=== PATIENT | female | born 1990 | race Hispanic/Latino ===

== ENCOUNTER 2017-04-05 07:27 | Emergency (ER) | payer MEDICAID, OTHER ==
[~2017-04-05] VITALS: Ht 160 cm; Wt 91.6 kg
--- NOTE | 2017-04-05 08:12 | ED Chest Pain ---
General Chief Complaint: Chest Pain Stated Complaint: CHEST PAIN Nursing Triage Note: c/o intermittant chest pain x 3-4 days. Woke up with chest pain 0640 this morning. Nursing Sepsis Screen: No Definite Risk Source: patient Exam Limitations: no limitations History of Present Illness Time seen by provider: 07:45 Initial Comments Here with 3-4 days of epigastric/chest discomfort that radiates to the right shoulder. Pain woke her up this morning. She is approximately 32 weeks . She does have gestational diabetes. No history of similar. Otherwise uncomplicated course. No vomiting or diarrhea. History of preeclampsia and previous pregnancies. This is why she is currently on aspirin. She did take an aspirin this morning. Timing/Duration: 3-4 days Severity/Quality: moderate, aching Location: central, epigastric Radiation: back Activities at Onset: none Modifying Factors: improves with rest ASA po COMPUTER NUMERICAL CONTROL GRINDER: Yes NTG SL COMPUTER NUMERICAL CONTROL GRINDER: No Associated Symptoms: abdominal pain, back pain, No diaphoresis, No dizziness, No nausea/vomiting, No shortness of breath, No weakness Allergies and Home Medications Allergies Coded Allergies: No Known Drug Allergies (Unverified , 04/05/17) Review of Systems Constitutional: see HPI, No chills, No fever EENTM: No Symptoms Reported Respiratory: No Symptoms Reported Cardiovascular: See HPI, Denies Edema, Denies Lightheadedness Gastrointestinal: Abdominal Pain, Denies Diarrhea, Denies Nausea, Denies Vomiting Genitourinary: No Symptoms Reported Musculoskeletal: see HPI Skin: no symptoms reported All Other Systems Reviewed Negative Unless Noted: Yes Past Ousidjz-Xfjrax-Zrqvnp Hx Patient Social History Alcohol Use: Denies Use Recreational Drug Use: No Smoking Status: Never a Smoker Recent Foreign Travel: No Contact w/Someone Who Travel: No Recent Infectious Disease Expo: No Surgeries HX Surgeries: Yes Surgeries: Orthopedic, Tonsillectomy Respiratory Hx Respiratory Disorders: No Cardiovascular Hx Cardiac Disorders: No Neurological Hx Neurological Disorders: No Reproductive System : Yes (32 wks) Hx Reproductive Disorders: Yes (history of preeclampsia) Genitourinary Hx Genitourinary Disorders: No Gastrointestinal Hx Gastrointestinal Disorders: No Musculoskeletal Hx Musculoskeletal Disorders: No Endocrine Hx Endocrine Disorders: No Psychosocial Hx Psychiatric Problems: No Reviewed Nursing Assessment Reviewed/Agree w Nursing PMH: Yes Physical Exam Vital Signs Vital Sign - Last 12Hours 04/05/17 07:48 Temp 98.1 Pulse 70 Resp 10 B/P (MAP) 114/74 Pulse Ox 98 O2 Delivery Room Air Capillary Refill : Less Than 3 Seconds General Appearance: WD/WN, Mild Distress (epigastric discomfort) HEENT: PERRL/EOMI, Pharynx Normal Neck: Non Tender, Supple Respiratory: Lungs Clear, Normal Breath Sounds Cardiovascular: Regular Rate, Rhythm, No Murmur Gastrointestinal: Non Tender, Soft Extremity: Normal Range of Motion, Non Tender, No Calf Tenderness, No Pedal Edema Neurologic/Psychiatric: Alert, Oriented x3 Skin: Normal Color, Warm/Dry Progress/Results/Core Measures Results/Orders Lab Results Laboratory Tests Test 04/05/17 08:05 04/05/17 08:35 Range/Units White Blood Count 10.1 4.3-11.0 10^3/uL Red Blood Count 4.11 L 4.35-5.85 10^6/uL Hemoglobin 11.8 11.5-16.0 G/DL Hematocrit 35 35-52 % Mean Corpuscular Volume 86 80-99 FL Mean Corpuscular Hemoglobin 29 25-34 PG Mean Corpuscular Hemoglobin Concent 33 32-36 G/DL Red Cell Distribution Width 13.3 10.0-14.5 % Platelet Count 305 130-400 10^3/uL Mean Platelet Volume 9.7 7.4-10.4 FL Neutrophils (%) (Auto) 64 42-75 % Lymphocytes (%) (Auto) 28 12-44 % Monocytes (%) (Auto) 7 0-12 % Eosinophils (%) (Auto) 1 0-10 % Basophils (%) (Auto) 0 0-10 % Neutrophils # (Auto) 6.5 1.8-7.8 X 10^3 Lymphocytes # (Auto) 2.8 1.0-4.0 X 10^3 Monocytes # (Auto) 0.7 0.0-1.0 X 10^3 Eosinophils # (Auto) 0.1 0.0-0.3 10^3/uL Basophils # (Auto) 0.0 0.0-0.1 10^3/uL Sodium Level 135 135-145 MMOL/L Potassium Level 3.9 3.6-5.0 MMOL/L Chloride Level 108 H 98-107 MMOL/L Carbon Dioxide Level 19 L 21-32 MMOL/L Anion Gap 8 5-14 MMOL/L Blood Urea Nitrogen 9 7-18 MG/DL Creatinine 0.56 L 0.60-1.30 MG/DL Estimat Glomerular Filtration Rate > 60 BUN/Creatinine Ratio 16 Glucose Level 98 70-105 MG/DL Calcium Level 8.9 8.5-10.1 MG/DL Total Bilirubin 0.2 0.1-1.0 MG/DL Aspartate Amino Transf (AST/SGOT) 10 5-34 U/L Alanine Aminotransferase (ALT/SGPT) 14 0-55 U/L Alkaline Phosphatase 87 40-136 U/L Total Protein 6.5 6.4-8.2 GM/DL Albumin 3.3 3.2-4.5 GM/DL Amylase Level 40 25-125 U/L Lipase 24 8-78 U/L Urine Color YELLOW Urine Clarity CLEAR Urine pH 6 5-9 Urine Specific [place] 1.015 L 1.016-1.022 Urine Protein NEGATIVE NEGATIVE Urine Glucose (UA) NEGATIVE NEGATIVE Urine Ketones NEGATIVE NEGATIVE Urine Nitrite NEGATIVE NEGATIVE Urine Bilirubin NEGATIVE NEGATIVE Urine Urobilinogen NORMAL NORMAL MG/DL Urine Leukocyte Esterase NEGATIVE NEGATIVE Urine RBC (Auto) NEGATIVE NEGATIVE Urine RBC NONE /HPF Urine WBC RARE /HPF Urine Squamous Epithelial Cells 2-5 /HPF Urine Crystals NONE /LPF Urine Bacteria TRACE /HPF Urine Casts NONE /LPF Urine Mucus NEGATIVE /LPF Urine Culture Indicated NO My Orders Orders - LAURYN KAT MD Amylase (04/05/17 07:55) Cbc With Automated Diff (04/05/17 07:55) Comprehensive Metabolic Panel (04/05/17 07:55) Lipase (04/05/17 07:55) Ua Culture If Indicated (04/05/17 07:55) Saline Lock/Iv-Start (04/05/17 07:55) Us Gallbladder [id number] (04/05/17 07:55) Ekg Tracing (04/05/17 07:56) Vital Signs/I&O Vital Sign - Last 12Hours 04/05/17 07:48 Temp 98.1 Pulse 70 Resp 10 B/P (MAP) 114/74 Pulse Ox 98 O2 Delivery Room Air Blood Pressure Mean: 87 Progress Note : Progress Note Seen and evaluated. IV, labs and EKG ordered. Gallbladder ultrasound ordered. Patient declined pain medicine. Monitor patient. 0925: Discussed case with Dr. MARIA. He agrees with the plan and agrees for discharge currently. He would like her to go to the third floor for monitoring afterwards as outpatient. This was discussed with the patient she agrees. Discharged home with return precautions. Patient verbalize understanding instructions and agreement with plan. ECG Initial ECG Impression Date: Apr 05, 2017 Initial ECG Impression Time: 07:41 Initial ECG Rate: 98 Initial ECG Rhythm: Normal Sinus Comment Sinus rhythm with normal axis. No evidence of ST elevation GA. No previous available for comparison. Interpreted by me. Diagnostic Imaging Diagonstic Imaging: Ultrasound Plain Films/CT/US/NM/MRI: abdomen Comments NAME: [facility] REC#: [id number] PT STATUS: REG ER : 1990 PHYSICIAN: LAURYN KAT MD ADMIT DATE: 04/05/17/ER Signed Date of Exam: 04/05/17 US GALLBLADDER [id number] INDICATION: Chest pain x4 days. TECHNIQUE: Multiple grayscale sonographic images were obtained of the right upper quadrant of the abdomen. CORRELATION STUDY: None FINDINGS: LIVER: The liver measures 19 cm. Increased echogenicity suggestive of fatty infiltration. No definitive focal lesion. GALLBLADDER: The gallbladder is present and demonstrates no evidence of shadowing gallstones or biliary sludge. No abnormal gallbladder wall thickening or pericholecystic fluid. COMMON BILE DUCT: Obscured and not visualized. No suggestion for significant bile duct dilatation. PANCREAS: Largely obscured by overlying bowel gas. RIGHT KIDNEY: Measures 12.2 cm. No hydronephrosis. OTHER: None. IMPRESSION: 1. Negative for gallstones. Biliary tree largely obscured and not visualized but demonstrates no findings to suggest significant bile duct dilatation. 2. Borderline hepatomegaly with likely some degree of hepatic steatosis. Dictated by: Dictated on workstation # [id number] Dict: 04/05/1735 Trans: 04/05/17836 Interpreted by: MARGARET ROQUE DO Electronically signed by: MARGARET ROQUE DO 04/05/1737 Departure Impression Impression: Primary Impression: Epigastric abdominal pain Additional Impressions: Chest pain Qualified Codes: R07.9 - Chest pain, unspecified Third trimester Disposition: 01 HOME, SELF-CARE Condition: Improved Departure-Patient Inst. Decision time for Depature: 09:29 Referrals: CHRISTIAN MARIA DO (PCP/Family) Primary Care Physician Patient Instructions: Chest Pain (DC) Add. Discharge Instructions: All discharge instructions reviewed with patient and/or family. Voiced understanding. You will go to the third floor for further testing. Follow-up with your DrChaparro within a few days for recheck. Return for worsening, fever, vomiting, weakness , breathing problems or other concerns as needed. LAURYN KAT MD Apr 05, 2017 08:12
[2017-04-05 08:13] LABS: BASOPHILS % (AUTO) 0 % (0-10); EOSINOPHILS # (AUTO) 0.1 10^3/uL (0.0-0.3); EOSINOPHILS % (AUTO) 1 % (0-10); LYMPHOCYTES # (AUTO) 2.8 X 10^3 (1.0-4.0); LYMPHOCYTES % (AUTO) 28 % (12-44); MEAN CORPUSCULAR HEMOGLOBIN 29 PG (25-34); MEAN CORPUSCULAR HGB CONC 33 G/DL (32-36); MEAN CORPUSCULAR VOLUME 86 FL (80-99); MEAN PLATELET VOLUME 9.7 FL (7.4-10.4); MONOCYTES # (AUTO) 0.7 X 10^3 (0.0-1.0); MONOCYTES % (AUTO) 7 % (0-12); NEUTROPHILS # (AUTO) 6.5 X 10^3 (1.8-7.8); NEUTROPHILS % (AUTO) 64 % (42-75); PLATELET COUNT 305 10^3/uL (130-400); RED BLOOD COUNT 4.11 10^6/uL (4.35-5.85); RED CELL DISTRIBUTION WIDTH 13.3 % (10.0-14.5); WHITE BLOOD COUNT 10.1 10^3/uL (4.3-11.0)
--- NOTE | 2017-04-05 08:40 | Diagnostic Imaging Report ---
INDICATION: Chest pain x4 days. TECHNIQUE: Multiple grayscale sonographic images were obtained of the right upper quadrant of the abdomen. CORRELATION STUDY: None FINDINGS: LIVER: The liver measures 19 cm. Increased echogenicity suggestive of fatty infiltration. No definitive focal lesion. GALLBLADDER: The gallbladder is present and demonstrates no evidence of shadowing gallstones or biliary sludge. No abnormal gallbladder wall thickening or pericholecystic fluid. COMMON BILE DUCT: Obscured and not visualized. No suggestion for significant bile duct dilatation. PANCREAS: Largely obscured by overlying bowel gas. RIGHT KIDNEY: Measures 12.2 cm. No hydronephrosis. OTHER: None. IMPRESSION: 1. Negative for gallstones. Biliary tree largely obscured and not visualized but demonstrates no findings to suggest significant bile duct dilatation. 2. Borderline hepatomegaly with likely some degree of hepatic steatosis. Dictated by: Dictated on workstation # [id number]
[2017-04-05 08:42] LABS: ALANINE AMINOTRANSFERASE 14 U/L (0-55); ALBUMIN 3.3 GM/DL (3.2-4.5); AMYLASE 40 U/L (25-125); ANION GAP 8 MMOL/L (5-14); ASPARTATE AMINO TRANSFERASE 10 U/L (5-34); BILIRUBIN,TOTAL 0.2 MG/DL (0.1-1.0); BLOOD UREA NITROGEN 9 MG/DL (7-18); BUN/CREATININE RATIO 16; CALCIUM 8.9 MG/DL (8.5-10.1); CARBON DIOXIDE 19 MMOL/L (21-32); CHLORIDE 108 MMOL/L (98-107); CREATININE SERUM 0.56 MG/DL (0.60-1.30); GFR ESTIMATED > 60; GLUCOSE 98 MG/DL (70-105); LIPASE 24 U/L (8-78); POTASSIUM 3.9 MMOL/L (3.6-5.0); SODIUM 135 MMOL/L (135-145); TOTAL PROTEIN 6.5 GM/DL (6.4-8.2)
[2017-04-05 08:54] LABS: BILIRUBIN,URINE NEGATIVE (NEGATIVE); KETONES,URINE NEGATIVE (NEGATIVE); LEUKOCYTE ESTERASE ,URINE NEGATIVE (NEGATIVE); NITRITE,URINE NEGATIVE (NEGATIVE); PH,URINE 6 (5-9); PROTEIN,URINE NEGATIVE (NEGATIVE); UROBILINOGEN,URINE NORMAL (NORMAL)
[2017-04-05 09:03] LABS: WBC,URINE RARE /HPF
[2017-04-05 09:42] VITALS: BP 112/68
== END 2017-04-05 09:42 | disposition home or self-care (01) ==
LOC: ER 07:32
DX: O26.893 Other specified pregnancy related conditions, third trimester (principal); R10.13 Epigastric pain; R07.89 Other chest pain; Z3A.32 32 weeks gestation of pregnancy; Z87.59 Personal history of other complications of pregnancy, childbirth and the puerperium; Z79.82 Long term (current) use of aspirin
CPT/HCPCS: 36415; 76705; 80053; 81000; 82150; 83690; 85025; 93005

== ENCOUNTER 2017-04-05 09:37 | Outpatient (CLI) | payer MEDICAID, OTHER ==
[2017-04-05 10:34] VITALS: BP 126/71
--- NOTE | 2017-04-06 12:01 | Physician Query-Final Dx ---
CHEO MAYEN 04/06/17 1201: Clinic Account Progress/Dx Physician Query: Please give diagnosis Date of Service Apr 05, 2017 at 09:37 CHRISTIAN MARIA DO 04/07/17 0849: Clinic Account Progress/Dx DIAGNOSIS: Diagnosis 32 week IUP Chest tightness SOB CHEO MAYEN Apr 06, 2017 12:01 CHRISTIAN MARIA DO Apr 07, 2017 08:49
== END 2017-04-05 10:37 | disposition home or self-care (01) ==
LOC: WSo 09:37 → LDRP 09:37 → WSo 10:37
PROVIDERS: ATTEND Obstetrics & Gynecology
DX: R06.02 Shortness of breath (principal); R07.89 Other chest pain; Z3A.32 32 weeks gestation of pregnancy
CPT/HCPCS: 59025

== ENCOUNTER 2017-04-20 15:24 | Outpatient (CLI) | payer MEDICAID ==
[~2017-04-20] VITALS: Ht 160 cm; Wt 91.6 kg
[2017-04-20 15:00] VITALS: BP 144/72
[2017-04-20 15:15] VITALS: BP 116/70
[2017-04-20] MEDS ORDERED: ACETAMINOPHEN 500 MG TAB (TYLENOL) PO ONE (15:45)
[2017-04-20 15:46] LABS: BASOPHILS % (AUTO) 0 % (0-10); EOSINOPHILS % (AUTO) 0 % (0-10); LYMPHOCYTES % (AUTO) 18 % (12-44); MEAN CORPUSCULAR HEMOGLOBIN 29 PG (25-34); MEAN CORPUSCULAR HGB CONC 34 G/DL (32-36); MEAN CORPUSCULAR VOLUME 86 FL (80-99); MEAN PLATELET VOLUME 9.8 FL (7.4-10.4); MONOCYTES # (AUTO) 0.7 X 10^3 (0.0-1.0); MONOCYTES % (AUTO) 6 % (0-12); NEUTROPHILS # (AUTO) 8.1 X 10^3 (1.8-7.8); NEUTROPHILS % (AUTO) 75 % (42-75); PLATELET COUNT 316 10^3/uL (130-400); RED BLOOD COUNT 3.93 10^6/uL (4.35-5.85); RED CELL DISTRIBUTION WIDTH 13.5 % (10.0-14.5); WHITE BLOOD COUNT 10.8 10^3/uL (4.3-11.0)
[2017-04-20 16:04] LABS: ALANINE AMINOTRANSFERASE 13 U/L (0-55); ALBUMIN 3.1 GM/DL (3.2-4.5); ANION GAP 11 MMOL/L (5-14); ASPARTATE AMINO TRANSFERASE 14 U/L (5-34); BILIRUBIN,TOTAL 0.2 MG/DL (0.1-1.0); BLOOD UREA NITROGEN 8 MG/DL (7-18); BUN/CREATININE RATIO 12; CALCIUM 8.9 MG/DL (8.5-10.1); CARBON DIOXIDE 18 MMOL/L (21-32); CHLORIDE 106 MMOL/L (98-107); CREATININE SERUM 0.67 MG/DL (0.60-1.30); GFR ESTIMATED > 60; GLUCOSE 187 MG/DL (70-105); POTASSIUM 3.8 MMOL/L (3.6-5.0); SODIUM 135 MMOL/L (135-145); TOTAL PROTEIN 6.5 GM/DL (6.4-8.2); URIC ACID 3.1 MG/DL (2.6-7.2)
[2017-04-20 16:23] LABS: PROTEIN/CREATININE RATIO 0.14
[2017-04-20] MEDS ORDERED: GLYB5TAB6 PO (16:47)
[2017-04-20] MEDS ORDERED: PREN1TAB86 PO (16:48)
--- NOTE | 2017-04-21 13:46 | Physician Query-Final Dx ---
CHEO MAYEN 04/21/17 1346: Clinic Account Progress/Dx Physician Query: Please give diagnosis Date of Service Apr 20, 2017 at 15:24 CHRISTIAN MARIA DO 04/21/17 1432: Clinic Account Progress/Dx DIAGNOSIS: Diagnosis 34 week IUP Headache Elevated BP at home Hx of PreE GDMA2 CHEO MAYEN Apr 21, 2017 13:46 CHRISTIAN MARIA DO Apr 21, 2017 14:32
== END 2017-04-20 17:25 | disposition home or self-care (01) ==
LOC: WSo 15:24 → LDRP 15:24 → WSo 17:25
PROVIDERS: ATTEND Obstetrics & Gynecology
DX: O24.419 Gestational diabetes mellitus in pregnancy, unspecified control (principal); R51 Headache; R03.0 Elevated blood-pressure reading, without diagnosis of hypertension; Z3A.34 34 weeks gestation of pregnancy
CPT/HCPCS: 36415; 80053; 82570; 84156; 84550; 85025; 99213

== ENCOUNTER 2017-05-17 19:10 | Inpatient (IN) | payer MEDICAID ==
[~2017-05-17] VITALS: Ht 160 cm; Wt 99.4 kg
[~2017-05-17 19:10] MED LIST: GLYB5TAB6 PO; PREN1TAB86 PO
[2017-05-17 19:30] VITALS: BP 144/91
[2017-05-17] MEDS ORDERED: NS IV 1000 ML 2,000 ML ONE (19:48)
[2017-05-17] MEDS ORDERED: AMPICILLIN INJECTION 2,000 MG in NS (IVPB) 50 ML IV SCH (20:04)
[2017-05-17 20:11] LABS: BASOPHILS % (AUTO) 0 % (0-10); EOSINOPHILS % (AUTO) 0 % (0-10); LYMPHOCYTES # (AUTO) 2.8 X 10^3 (1.0-4.0); LYMPHOCYTES % (AUTO) 26 % (12-44); MEAN CORPUSCULAR HEMOGLOBIN 29 PG (25-34); MEAN CORPUSCULAR HGB CONC 34 G/DL (32-36); MEAN CORPUSCULAR VOLUME 86 FL (80-99); MEAN PLATELET VOLUME 10.4 FL (7.4-10.4); MONOCYTES # (AUTO) 0.8 X 10^3 (0.0-1.0); MONOCYTES % (AUTO) 8 % (0-12); NEUTROPHILS # (AUTO) 6.9 X 10^3 (1.8-7.8); NEUTROPHILS % (AUTO) 65 % (42-75); PLATELET COUNT 333 10^3/uL (130-400); RED BLOOD COUNT 4.11 10^6/uL (4.35-5.85); RED CELL DISTRIBUTION WIDTH 13.9 % (10.0-14.5); WHITE BLOOD COUNT 10.6 10^3/uL (4.3-11.0)
[2017-05-17] MEDS: NS IV 1000 ML 1,000 ML IV SCH (20:12)
[2017-05-17] MEDS ORDERED: MINERAL OIL CONCENTRATE 99.9% 15 ML UDC TOP PRN (20:15)
[2017-05-17] MEDS ORDERED: CATHETER FLUSH 10 ML SYR IV PRN (20:15)
[2017-05-17] MEDS ORDERED: HYDROmorphone (DILAUDID) 2 MG/ML VIAL IVP PRN (20:15)
[2017-05-17] MEDS ORDERED: NS IV 1000 ML 1,000 ML IV ONE (20:15)
[2017-05-17] MEDS ORDERED: MISOPROSTOL 100 MCG (CYTOTEC) TAB PO NR (20:15)
[2017-05-17 20:25] LABS: ALANINE AMINOTRANSFERASE 16 U/L (0-55); ALBUMIN 3.2 GM/DL (3.2-4.5); ANION GAP 13 MMOL/L (5-14); ASPARTATE AMINO TRANSFERASE 14 U/L (5-34); BILIRUBIN,TOTAL 0.2 MG/DL (0.1-1.0); BLOOD UREA NITROGEN 10 MG/DL (7-18); BUN/CREATININE RATIO 14; CALCIUM 9.1 MG/DL (8.5-10.1); CARBON DIOXIDE 18 MMOL/L (21-32); CHLORIDE 105 MMOL/L (98-107); CREATININE SERUM 0.74 MG/DL (0.60-1.30); GFR ESTIMATED > 60; GLUCOSE 166 MG/DL (70-105); POTASSIUM 3.7 MMOL/L (3.6-5.0); SODIUM 136 MMOL/L (135-145); TOTAL PROTEIN 6.6 GM/DL (6.4-8.2)
[2017-05-17 20:30] VITALS: BP 136/86
[2017-05-17] MEDS ORDERED: ALBU18HF2 IH (20:36)
[2017-05-17 21:40] VITALS: BP 131/81
[2017-05-17] MEDS ORDERED: CATHETER FLUSH 10 ML SYR IV SCH ×2 (22:00)
[2017-05-17 22:30] VITALS: BP 131/80
[2017-05-17 23:30] VITALS: BP 132/77
[2017-05-18] VITALS (31 sets, daily range): BP systolic 110–161; BP diastolic 0–105
[2017-05-18] MEDS: AMPICILLIN INJECTION 1,000 MG in NS (IVPB) 50 ML IV SCH ×2 (00:56→05:21)
[2017-05-18] MEDS ORDERED: MISOPROSTOL 100 MCG (CYTOTEC) TAB PO SCH (01:00)
[2017-05-18] MEDS: NS IV 1000 ML 1,000 ML IV SCH ×2 (02:42→14:15)
[2017-05-18] MEDS ORDERED: SUFENTA 0.6MCG/ML BUPIVA 0.125 100 ML ONE (05:06)
[2017-05-18] MEDS ORDERED: LACTATED RINGERS 0 ML IV ONE (05:06)
[2017-05-18] MEDS ORDERED: fentaNYL INJECTION 100 MCG/2 ML AMP ONE ×3 (05:59→08:05)
[2017-05-18] MEDS ORDERED: BUPIVACAINE 0.25% 30 ML (SENSORCAINE) VIAL ONE ×2 (05:59→06:00)
[2017-05-18] MEDS ORDERED: LACTATED RINGERS 1,000 ML IV SCH (06:21)
[2017-05-18] MEDS ORDERED: METOCLOPRAMIDE INJ 10 MG/2 ML (REGLAN) IV PRN (06:30)
[2017-05-18] MEDS ORDERED: NALOXONE 0.4 MG/ML 1 ML (NARCAN) VIAL IV PRN ×2 (06:30)
[2017-05-18] MEDS ORDERED: diphenhydrAMINE 50 MG/ML INJ (BENADRYL) IV PRN (06:30)
[2017-05-18] MEDS ORDERED: ONDANSETRON 4 MG/2 ML (SDV) Z0FRAN IV PRN (06:30)
[2017-05-18] MEDS ORDERED: EPIDURAL (SUFENTA 0.6MCG/ML BUPIVA 0.125%) 100 ML BAG EPI SCH (06:30)
[2017-05-18] MEDS ORDERED: FAMOTIDINE 20MG/2ML IV (PEPCID) ONE (07:24)
[2017-05-18] MEDS ORDERED: CITRIC ACID/SOB CIT (BICITRA) 30 ML UDC ONE (07:24)
[2017-05-18] MEDS ORDERED: OXYTOCIN/NORMAL SALINE 1,000 ML IV ONE (07:39)
[2017-05-18] MEDS ORDERED: SEVOFLURANE (ULTANE) 15 ML INHAL SOLN ONE ×3 (07:39→08:18)
[2017-05-18] MEDS ORDERED: SUCCINYLCHOLINE INJ 100 MG/5 ML SYR ONE (07:40)
[2017-05-18] MEDS ORDERED: proPOfol 200 MG/20 ML (DIPRIVAN) VIAL IV ONE ×2 (07:40→07:57)
[2017-05-18] MEDS ORDERED: MIDAZOLAM 2 MG/2 ML (VERSED) VIAL ONE (07:42)
[2017-05-18] MEDS ORDERED: ceFAZolin 2 GM/50 ML NS 50 ML ONE (07:47)
[2017-05-18] MEDS ORDERED: ONDANSETRON 4 MG/2 ML (SDV) Z0FRAN ONE (07:54)
[2017-05-18] MEDS ORDERED: MEPERIDINE (DEMEROL) INJ 50 MG/ML ONE (07:58)
[2017-05-18] MEDS ORDERED: KETOROLAC 30 MG/ML VIAL ONE (07:58)
[2017-05-18] MEDS ORDERED: morphine INJ 10 MG/ML 1ML (SYR OR VIAL) ONE (08:05)
[2017-05-18] MEDS ORDERED: morphine INJ 10 MG/ML 1ML (SYR OR VIAL) IVP PRN (08:30)
[2017-05-18] MEDS ORDERED: fentaNYL INJECTION 100 MCG/2 ML AMP IVP PRN (08:30)
[2017-05-18] MEDS ORDERED: KETOROLAC 30 MG/ML VIAL IVP NR (08:30)
[2017-05-18] MEDS ORDERED: ONDANSETRON 4 MG/2 ML (SDV) Z0FRAN IVP PRN ×2 (08:30→09:15)
[2017-05-18] MEDS ORDERED: TETANUS,DIPTH,PERTUSS P/F (BOOSTRIX) 0.5 ML VIAL IM SCH (09:15)
[2017-05-18] MEDS ORDERED: MEASLES,MUMPS,RUBELLA 1 EA INJ SC SCH (09:15)
[2017-05-18] MEDS ORDERED: HYDROmorphone (DILAUDID) 2 MG/ML VIAL IVP PRN (09:15)
--- NOTE | 2017-05-18 10:25 | History & Physical-OB ---
OB - Chief Complaint & HPI Date/Time Date of Admission: Date of Admission: May 17, 2017 at 7:10 pm Time Seen by Provider: 07:00 Chief Complaint/History Hx : 3 Hx Para: 1 Expected Date of Delivery: May 27, 2017 Gestational Age in Weeks: 38 Indication for induction: other (GDMA2) Admission Nurse Assessment Rev: Yes History of Labs O pos Antibody neg RI RPR NR HIV NR HBsAg NR GC neg GBS pos Allergies and Home Medications Allergies Coded Allergies: No Known Drug Allergies (Unverified , 04/05/17) Home Medications Albuterol Sulfate 18 Gm Hfa.aer.ad, 18 GM IH PRN, (Reported) Glyburide 5 Mg Tablet, 5 MG PO DAILY, (Reported) Vit W-Ca,Fe,FA(<1 mg) 1 Each Tablet, 1 EACH PO DAILY, (Reported) OB - History Hx of Present Care: Yes Ultrasounds: Normal mid trimester US Obstetrical Complications: Gestational Diabetes Medical Complications: Respiratory (asthma) Delivery History Adverse Rxn to Tranfusion: No Patient Past Medical History asthma Social History/Family History Recent Infectious Disease Expo: No Alcohol Use: Denies Use Recreational Drug Use: No Immunizations Hepatitis A: Yes Hepatitis B: Yes OB - Admission Exam Physical Exam Date Seen by Provider: May 18, 2017 Time Seen by Provider: 07:00 Vitals: Vital Signs 05/17/17 05/18/17 05/18/17 05/18/17 19:30 05:40 07:05 09:00 Temp 97.4 Pulse 87 Resp 18 B/P (MAP) 131/69 O2 Delivery Room Air O2 Flow Rate 10.00 HEENT: NCAT Heart: Rhythm Normal Lungs: Clear Abdomen: Gravid Extremities: Normal Reflexes: Normal Cervical Dilatation: Fingertip Effacement: 75% Station: -2 Membranes: Intact Heart Rate: 130's Accelerations: Accelerations Present Decelerations: No Decelerations Short Term Variability: Present Cost Clerk Variability: Average (6-25) Contractions on Admission: >10 Minutes Apart Intensity: Mild Zhong Scoring Tool (Modified) Dilation (cm): 1-2cm (1) Effacement (%): 51-79% (2) Descent/Station: -2 (1) Cervix Consistency: Soft (2) Cervix Position: Anterior (2) Add 1 point for: Each previous vaginal delivery (1) Zhong Score: 9 Labs Laboratory Tests Test 05/17/17 19:30 Range/Units White Blood Count 10.6 4.3-11.0 10^3/uL Red Blood Count 4.11 L 4.35-5.85 10^6/uL Hemoglobin 11.9 11.5-16.0 G/DL Hematocrit 35 35-52 % Mean Corpuscular Volume 86 80-99 FL Mean Corpuscular Hemoglobin 29 25-34 PG Mean Corpuscular Hemoglobin Concent 34 32-36 G/DL Red Cell Distribution Width 13.9 10.0-14.5 % Platelet Count 333 130-400 10^3/uL Mean Platelet Volume 10.4 7.4-10.4 FL Neutrophils (%) (Auto) 65 42-75 % Lymphocytes (%) (Auto) 26 12-44 % Monocytes (%) (Auto) 8 0-12 % Eosinophils (%) (Auto) 0 0-10 % Basophils (%) (Auto) 0 0-10 % Neutrophils # (Auto) 6.9 1.8-7.8 X 10^3 Lymphocytes # (Auto) 2.8 1.0-4.0 X 10^3 Monocytes # (Auto) 0.8 0.0-1.0 X 10^3 Eosinophils # (Auto) 0.0 0.0-0.3 10^3/uL Basophils # (Auto) 0.0 0.0-0.1 10^3/uL Sodium Level 136 135-145 MMOL/L Potassium Level 3.7 3.6-5.0 MMOL/L Chloride Level 105 98-107 MMOL/L Carbon Dioxide Level 18 L 21-32 MMOL/L Anion Gap 13 5-14 MMOL/L Blood Urea Nitrogen 10 7-18 MG/DL Creatinine 0.74 0.60-1.30 MG/DL Estimat Glomerular Filtration Rate > 60 BUN/Creatinine Ratio 14 Glucose Level 166 H 70-105 MG/DL Calcium Level 9.1 8.5-10.1 MG/DL Total Bilirubin 0.2 0.1-1.0 MG/DL Aspartate Amino Transf (AST/SGOT) 14 5-34 U/L Alanine Aminotransferase (ALT/SGPT) 16 0-55 U/L Alkaline Phosphatase 135 40-136 U/L Total Protein 6.6 6.4-8.2 GM/DL Albumin 3.2 3.2-4.5 GM/DL OB - Assessment/Plan/Diagnosis Assessment Assessment: induction of labor Plan Induction Method: per Misoprostol Protocol Discharge Diagnosis Diagnosis: 26 yo @ 38 weeks GDMA2 GBS pos CHRISTIAN MARIA DO May 18, 2017 10:25 am
--- NOTE | 2017-05-18 10:26 | Progress Note-Post Operative ---
Post-Operative Progess Note Surgeon (s)/Coremaker Helper (s) Surgeon CHRISTIAN MARIA DO Coremaker Helper: Andria Rosales Pre-Operative Diagnosis Funic cord presentation, with SROM and Cord prolapse Post-Operative Diagnosis same Procedure & Operative Findings Date of Procedure 05/18/17 Procedure Performed/Findings PLTCS see dictation Anesthesia Type GETA Estimated Blood Loss Estimated blood loss (mL): 400 Specimens/Packing Specimens Removed placenta CHRISTIAN MARIA DO May 18, 2017 10:26 am
--- NOTE | 2017-05-18 11:16 | OPERATIVE REPORT ---
DATE OF SERVICE: 05/18/2017 PREOPERATIVE DIAGNOSES: 1. A 26-year-old at 38 weeks' gestation. 2. Funic presentation with cord prolapse. POSTOPERATIVE DIAGNOSES: 1. A 26-year-old at 38 weeks' gestation. 2. Funic presentation with cord prolapse. PROCEDURE: Emergency primary low transverse section. SURGEON: Dr. Sonny Coon. PORTAL ADMINISTRATOR: MORENA Dumont. ANESTHESIA: General endotracheal. ESTIMATED BLOOD LOSS: 400 mL. URINE OUTPUT: 50 mL, clear at the end of the procedure. FLUIDS: 700 mL of lactated Ringer's solution. FINDINGS: A live male infant weighing 7 pounds, 11 ounces, Apgars of 6 and 9, grossly normal-appearing uterus, bilateral fallopian tubes and ovaries. SPECIMENS SENT: Placenta. INDICATIONS FOR PROCEDURE: This 26-year-old female was an admission last evening for induction of labor due to GDMA 2. She was on anti-hyperglycemics. The patient was given Misoprostol as their induction method 100 mcg last evening which induced contractions and set the patient into labor. She progressed to approximately 6-7 cm dilatation. When I arrived this morning to evaluate the patient and possibly artificially rupture her membranes there were deep variable decelerations noted with each contraction. The patient had just received an epidural so there was suspicion that this may be the underlying cause; however, I did go ahead and check the patient at the time of my evaluation and on my vaginal examination I found the cervix to be approximately 6 cm dilated, 80% effaced and -1 station. However, I did palpate a pulsating mass going down the midline of the vertex. I immediately had suspicion for funic presentation and held the head off of the cervix and called for an emergency section. I rode with the patient back to the operating room with my hand in the vagina holding the head off of the cervix. The patient was quickly briefed in that time frame about what was going on and the risks involved, as well as possibility of eminent if we do not act accordingly. Consent was obtained. Once in the operating room spontaneous rupture of membranes occurred and nurse was asked to take my place and she could palpate the umbilical cord in the vagina and continued to lift the infant's head off of the cervix. The patient was quickly prepped and draped in the normal sterile fashion after general anesthesia was initiated. I was able to scrub in and begin the procedure. OPERATIVE REPORT IN DETAIL: Once I was scrubbed in and able to proceed I made a Pfannenstiel skin incision with the knife and carried it down the underlying fascia using the knife. The fascial incision extended laterally using blunt traction. The rectus muscles were dissected down the midline using blunt traction. The peritoneum was entered bluntly and extended using blunt traction. The lower uterine segment was identified and found to be thinned out. I made a low transverse incision through the lower uterine segment and then extended this with blunt traction laterally. The was in vertex presentation. I elevate the 's head up through the incision, anterior posterior shoulders are delivered and the infant was brought into the operative field where it was bulb suctioned. The cord was dually clamped and cut and the infant was handed off to the waiting nurses and pediatric team in attendance. Cord blood was then collected. A 3-vessel cord with intact placenta was delivered spontaneously thereafter. Intravenous Pitocin was initiated to facilitate uterine contraction. An Jac ring retractor was then placed within the peritoneal incision which offers excellent lateral sidewall retraction while I proceeded with my repair. I then exteriorized the uterus and cleared it of all endometrial clots and debris. I then proceeded with closing the uterus using 0 Vicryl suture in a running locked fashion and a second layer of imbricating 0 Monocryl was placed. Excellent hemostasis was noted after doing this. I then copiously irrigated the pelvis using normal saline. There was no active bleeding noted from my dissection planes. I placed the uterus back within the pelvis and placed antiadhesive over the low transverse incision. I then proceeded with closing the peritoneum using 3-0 Vicryl suture in a running fashion. The rectus muscles were reapproximated using 3-0 Vicryl suture in an interrupted fashion. The fascia was reapproximated using 0 Vicryl suture in a running fashion. The subcutaneous tissues were reapproximated using 3-0 plain and an interrupted subcutaneous stitch and the skin was reapproximated using 4-0 Monocryl and running subcuticular. Dermabond was applied to the incision. Sterile dressing was adhesed with white tape. The patient tolerated the procedure well and was taken to the recovery area in stable condition. There were 2 grams of Ancef given intraoperatively for infection prophylaxis. Lap and sponge count was correct at the end of the procedure. Instrument count was correct as well. Job ID: [id number] DocumentID: [id number] Dictated Date: 05/18/2017 10:33:31 Mold Designer Date: 05/18/2017 11:15:57 Dictated By: DO JAQUAN ASHLEY
[2017-05-18] MEDS: HYDROcodone/APAP 5 MG/325 MG (LORTAB) TAB PO PRN ×3 (11:26→21:20)
[2017-05-18] MEDS ORDERED: CATHETER FLUSH 10 ML SYR IV SCH (14:00)
[2017-05-18] MEDS: KETOROLAC 30 MG/ML VIAL IVP SCH ×2 (14:16→20:08)
[2017-05-18] MEDS: DOCUSATE SODIUM 100 MG (COLACE) CAP PO SCH (20:08)
[2017-05-19] MEDS: HYDROcodone/APAP 5 MG/325 MG (LORTAB) TAB PO PRN ×4 (02:16→20:16)
[2017-05-19] MEDS: KETOROLAC 30 MG/ML VIAL IVP SCH ×2 (02:16→09:13)
[2017-05-19 04:00] VITALS: BP 97/65
[2017-05-19 04:15] VITALS: BP 97/65
[2017-05-19 05:55] LABS: BASOPHILS % (AUTO) 0 % (0-10); EOSINOPHILS # (AUTO) 0.1 10^3/uL (0.0-0.3); EOSINOPHILS % (AUTO) 1 % (0-10); LYMPHOCYTES # (AUTO) 2.5 X 10^3 (1.0-4.0); LYMPHOCYTES % (AUTO) 26 % (12-44); MEAN CORPUSCULAR HEMOGLOBIN 29 PG (25-34); MEAN CORPUSCULAR HGB CONC 33 G/DL (32-36); MEAN CORPUSCULAR VOLUME 87 FL (80-99); MEAN PLATELET VOLUME 9.4 FL (7.4-10.4); MONOCYTES # (AUTO) 0.7 X 10^3 (0.0-1.0); MONOCYTES % (AUTO) 7 % (0-12); NEUTROPHILS # (AUTO) 6.3 X 10^3 (1.8-7.8); NEUTROPHILS % (AUTO) 66 % (42-75); PLATELET COUNT 272 10^3/uL (130-400); RED BLOOD COUNT 3.39 10^6/uL (4.35-5.85); RED CELL DISTRIBUTION WIDTH 13.9 % (10.0-14.5); WHITE BLOOD COUNT 9.6 10^3/uL (4.3-11.0)
[2017-05-19 08:06] VITALS: BP 117/84
--- NOTE | 2017-05-19 08:49 | Discharge Inst-Women's Service ---
Discharge Inst-Women's Serv Depart Medication/Instructions New, Converted or Re-Newed RX: RX on Chart Consults/Follow Up Additional Follow Up: Yes Orders/Referrals Dr. Maria in 7-10 days and in 6 weeks Activity Activity: Activity as Tolerated Driving Instructions: No Driving for 1 Week NO SMOKING: NO SMOKING Nothing Inside Vagina: No Douching, No [place], No Tampons Diet Discharge Diet: No Restrictions Symptoms to Report to : Bleeding Excessive, Pain Increased, Fever Over 101 Degrees F, Vaginal Bleeding Increase, Questions/Concerns For Any Problems or Questions: Contact Your Physician Skin/Wound Care Infection Signs and Symptoms: Increased Redness, Foul Odor of Wound, Increased Drainage, Skin Itchy or Has a Rash, Increased Swelling, Temperature Above 101 F Operative Area Clean and Dry: Keep Incision Clean/Dry Stitches/Tere/Dermabond: Dermabond, Care of Stitches Bathing Instructions: Shower (x 2 weeks) CHRISTIAN MARIA DO May 19, 2017 8:49 am
[2017-05-19] MEDS ORDERED: HYDR-3812 PO (08:51)
[2017-05-19] MEDS ORDERED: IBUP-1773 PO (08:51)
[2017-05-19] MEDS ORDERED: DOCU100C37 PO (08:51)
[2017-05-19] MEDS ORDERED: FERR-74 PO (08:52)
[2017-05-19] MEDS ORDERED: KETOROLAC 30 MG/ML VIAL ONE (09:04)
--- NOTE | 2017-05-19 09:09 | Progress Note-Standard ---
Standard Progress Note Progress Notes/Assess & Plan Date Seen by Provider: May 19, 2017 Time Seen by Provider: 08:20 Progress/Assessment & Plan Patient doing well postop day one from primary low transverse section. She reports good pain control, denies heavy lochia. She is ambulating and voiding freely this morning. And tolerating a regular diet Vital Sign - Last 24 Hours 05/18/17 05/18/17 05/18/17 05/18/17 10:00 14:15 15:32 20:00 Temp 97.4 98.4 99.8 Pulse 102 106 111 Resp 20 20 18 B/P (MAP) 140/88 110/66 128/81 Pulse Ox 100 97 97 O2 Delivery Room Air Room Air Room Air Room Air 05/18/17 05/18/17 05/19/17 05/19/17 20:20 23:26 04:00 04:15 Temp 98.6 97.8 97.8 Pulse 106 100 96 96 Resp 20 18 18 18 B/P (MAP) 110/66 118/74 97/65 97/65 Pulse Ox 97 98 98 98 O2 Delivery Room Air Room Air Room Air Room Air O2 Flow Rate 10.00 05/19/17 08:06 Temp 98.5 Pulse 94 Resp 16 B/P (MAP) 117/84 Pulse Ox 97 O2 Delivery Room Air Incision: Clean, dry, intact Laboratory Tests Test 05/19/17 05:50 Range/Units White Blood Count 9.6 4.3-11.0 10^3/uL Red Blood Count 3.39 L 4.35-5.85 10^6/uL Hemoglobin 9.7 L 11.5-16.0 G/DL Hematocrit 30 L 35-52 % Mean Corpuscular Volume 87 80-99 FL Mean Corpuscular Hemoglobin 29 25-34 PG Mean Corpuscular Hemoglobin Concent 33 32-36 G/DL Red Cell Distribution Width 13.9 10.0-14.5 % Platelet Count 272 130-400 10^3/uL Mean Platelet Volume 9.4 7.4-10.4 FL Neutrophils (%) (Auto) 66 42-75 % Lymphocytes (%) (Auto) 26 12-44 % Monocytes (%) (Auto) 7 0-12 % Eosinophils (%) (Auto) 1 0-10 % Basophils (%) (Auto) 0 0-10 % Neutrophils # (Auto) 6.3 1.8-7.8 X 10^3 Lymphocytes # (Auto) 2.5 1.0-4.0 X 10^3 Monocytes # (Auto) 0.7 0.0-1.0 X 10^3 Eosinophils # (Auto) 0.1 0.0-0.3 10^3/uL Basophils # (Auto) 0.0 0.0-0.1 10^3/uL Diagnosis: Postop day 1 primary low transverse section Cord prolapse with funic presentation Acute blood loss anemia GDM A2 Plan: Continue routine postoperative care Encourage ambulation Replace iron Anticipate discharge tomorrow CHRISTIAN MARIA DO May 19, 2017 9:09 am
[2017-05-19] MEDS: DOCUSATE SODIUM 100 MG (COLACE) CAP PO SCH ×2 (09:13→20:16)
--- NOTE | 2017-05-19 10:23 | Anesthesia-Regional Post-Op ---
Regional Patient Condition Mental Status: Alert, Oriented x3 Circulation: Same as Pre-Op Headache: Absent Sensation: Full Recovery Motor Block: Absent Post Op Complications Complications None Follow Up Care/Instructions Patient Instructions None needed. Anesthesia/Patient Condition Patient is doing well, no complaints, stable vital signs, no apparent adverse anesthesia problems. No complications reported per nursing. EDI ROMAN CRNA May 19, 2017 10:23
--- NOTE | 2017-05-19 10:24 | Anesthesia-General Post-Op ---
General Significant Intra-Op Events Notes TRIXIE placed prior to STAT c/s. GETA for procedure. Post Op Complications Complications None Follow Up Care/Instructions Patient Instructions None needed. Anesthesia/Patient Condition Patient Condition Patient is doing well, no complaints, stable vital signs, no apparent adverse anesthesia problems. No complications reported per nursing. EDI ROMAN CRNA May 19, 2017 10:24
[2017-05-19 11:54] VITALS: BP 129/87
[2017-05-19] MEDS: IBUPROFEN 600 MG (MOTRIN) TAB PO SCH ×2 (14:38→20:16)
[2017-05-19 16:00] VITALS: BP 132/79
[2017-05-19 20:15] VITALS: BP 137/92
[2017-05-20] MEDS: HYDROcodone/APAP 5 MG/325 MG (LORTAB) TAB PO PRN ×3 (01:17→12:52)
[2017-05-20 03:20] VITALS: BP 134/90
[2017-05-20] MEDS: IBUPROFEN 600 MG (MOTRIN) TAB PO SCH ×2 (03:20→12:50)
[2017-05-20] MEDS: DOCUSATE SODIUM 100 MG (COLACE) CAP PO SCH (08:43)
--- NOTE | 2017-05-20 10:46 | Postpartum Progress Note ---
Post Op Post-operative Day #2 s/p PLTCS, Subjective: Patient is without complaints. Ambulating, voiding after espino removed. Tolerating a regular diet without nausea or vomiting. Normal lochia. Pain is well controlled with oral pain medications. Passing flatus. Objective: Vital Sign - Last 12Hours 05/20/17 03:20 Temp 98.1 Pulse 98 Resp 18 B/P (MAP) 134/90 Pulse Ox 98 O2 Delivery Room Air Physical Exam: General - Alert and oriented, no apparent distress Abdomen - Soft, appropriately tender to palpation, non-distended, fundus firm at umbilicus Incision - clean, dry and intact; no erythema or induration, no drainage Extremities - no edema, negative Fidelina's bilaterally Assessment: 1. post-operative day # 2, status post PLTCS. Recovering well, hemodynamically stable 2. Acute blood loss anemia Plan: Routine post-operative care. Encourage breast feeding. Encourage ambulation. VTE prophylaxis: SCDs. Ferrous sulfate supplementation. Plan for discharge today Vitals - Labs Vital Signs - I&O Vital Signs Date Time Temp Pulse Resp B/P (MAP) Pulse Ox O2 Delivery O2 Flow Rate FiO2 05/20/17 03:20 98.1 98 18 134/90 98 Room Air 05/19/17 20:15 98.4 97 18 137/92 97 Room Air 05/19/17 16:00 99.2 99 18 132/79 96 Room Air 05/19/17 11:54 98.7 98 18 129/87 95 Room Air DA BERGER DO May 20, 2017 10:46
[2017-05-20 13:30] VITALS: BP 133/88
--- NOTE | 2017-05-30 08:06 | DISCHARGE SUMMARY ---
DATE OF SERVICE: 05/20/2017 ADMISSION DIAGNOSES: 1. A 26-year-old at 38 weeks' gestation. 2. Gestational diabetes mellitus 2. 3. Group B Strep positive. DISCHARGE DIAGNOSES: 1. A 26-year-old at 38 weeks' gestation. 2. Gestational diabetes mellitus 2. 3. Group B Strep positive. 4. Postop day #2 primary low transverse section for cord prolapse. 5. Acute blood loss anemia. ATTENDING PHYSICIAN: Christian Maria DO with coverage of Dr. Christel Carlos. SERVICE: [facility]. HOSPITAL COURSE: Please see admission H and P from 05/18/2017 for complete details pertaining to the patient's admission presentation. Please see operative report for complete details from 05/18/2017 for indications for and the procedure in detail. POSTOPERATIVE COURSE: This patient was fairly routine. On postop day #1, the patient was doing very well. Her vital signs remained stable. Hemoglobin dropped down to 9.7. She was started on iron supplementation due to acute blood loss anemia. She was ambulating and voiding freely and tolerating a regular diet. On postop day #2, the patient continued to improve and was doing very well, incision was clean, dry and intact. Vital signs were stable. She was ambulating and voiding freely. Decision was made to discharge the patient home on postop day #2. She was given routine postoperative and precautions and sent home on the following medications includin. Motrin 600 mg 1 p.o. q.6 hours p.r.n. as needed for pain, #60. 2. Ferrous sulfate 325 mg daily, #60. 3. Colace 100 mg 1 p.o. b.i.d. p.r.n. as needed for constipation, #40. 4. Lortab 5/325 1 p.o. q 4-6 hours p.r.n. as needed for pain, #50. All the patient's questions were answered pertaining to administration of these medications and followup was scheduled in 7-10 days for incision check. Job ID: [id number] DocumentID: [id number] Dictated Date: 05/29/2017 09:14:04 Finance Effectiveness Manager Date: 05/30/2017 08:05:29 Dictated By: CHRISTIAN MARIA DO
== END 2017-05-20 13:50 | disposition home or self-care (01) | DRG 765 ==
LOC: LDRP 19:10
PROVIDERS: ADMIT Obstetrics & Gynecology; ATTEND Obstetrics & Gynecology
PROC: 3E0DXGC Introduction of Other Therapeutic Substance into Mouth and Pharynx, External Approach (ICD-10-PCS; 2017-05-17)
PROC: 10D00Z1 Extraction of Products of Conception, Low, Open Approach (ICD-10-PCS; principal; 2017-05-18 07:30)
DX: O69.0XX0 Labor and delivery complicated by prolapse of cord, not applicable or unspecified (principal); O24.415 Gestational diabetes mellitus in pregnancy, controlled by oral hypoglycemic drugs; O90.81 Anemia of the puerperium; D62 Acute posthemorrhagic anemia; O99.824 Streptococcus B carrier state complicating childbirth; Z37.0 Single live birth; Z3A.38 38 weeks gestation of pregnancy; Z23 Encounter for immunization; Z79.84 Long term (current) use of oral hypoglycemic drugs
CPT/HCPCS: 36415; 80053; 85025; 86850; 86900; 86901; 88307; 90715; 94664

== ENCOUNTER 2017-06-25 07:05 | Emergency (ER) | payer MEDICAID ==
[~2017-06-25] VITALS: Ht 160 cm; Wt 86.2 kg
[~2017-06-25 07:05] MED LIST changes: +ALBU18HF2 IH; +DOCU100C37 PO; +FERR-74 PO; +HYDR-3812 PO; +IBUP-1773 PO
[2017-06-25] MEDS ORDERED: HYDROcodone/APAP 5 MG/325 MG (LORTAB) TAB PO ONE (07:30)
[2017-06-25] MEDS ORDERED: ORPHENADRINE 60 MG/2 ML (NORFLEX) AMP IM ONE (07:30)
[2017-06-25] MEDS ORDERED: KETOROLAC 60 MG/2 ML VIAL IM ONE (07:30)
[2017-06-25] MEDS ORDERED: PRD20T PO (07:41)
--- NOTE | 2017-06-25 07:41 | ED Back Pain ---
General Chief Complaint: Back Problems Stated Complaint: BACK PAIN AFTER CHILDBIRTH 05.18 Nursing Triage Note: c/o low back pain. Radiation down right leg reported. Pain has been worse the last 6 days. Pt has been told she has sciatica and has appt with PT on 07-06. Hx of C-setion on 05-28-17. Denies acute injury. Nursing Sepsis Screen: No Definite Risk Source of Information: Patient Exam Limitations: No Limitations History of Present Illness Time Seen by Provider: 07:25 Initial Comments This 26-year-old young lady presents to the emergency room with complaints of lower back pain radiating into the right buttocks and sometimes all the way down to the right foot. She had some mild pain after her section in early May. Pain has intensified over the past week and is now unbearable. She has been in bed for the past 2 days. She has been taking 400- 800 mg of ibuprofen which does help control the pain. She spoke with her doctor on Monday and physical therapy was recommended. However, her appointment is not until July 06. She is in obvious discomfort on my evaluation. Last dose of ibuprofen was 400 mg at 06:30. She is breast-feeding Allergies and Home Medications Allergies Coded Allergies: No Known Drug Allergies (Unverified , 04/05/17) Home Medications Albuterol Sulfate 18 Gm Hfa.aer.ad, 18 GM IH PRN, (Reported) Docusate Sodium 100 Mg Capsule, 100 MG PO BID PRN for CONSTIPATION-1ST LINE, #40 Prescribed by: CHRISTIAN MARIA on 05/19/17 0851 Ferrous Sulfate 325 Mg Tablet, 325 MG PO DAILY, #60 Prescribed by: CHRISTIAN MARIA on 05/19/17 0852 Hydrocodone/Acetaminophen 1 Each Tablet, 1-2 TAB PO Q4H PRN for PAIN-MODERATE, # 50 Prescribed by: CHRISTIAN MARIA on 05/19/17 0851 Ibuprofen 600 Mg Tablet, 600 MG PO Q6H, #80 Prescribed by: CHRISTIAN MARIA on 05/19/17 0851 Prednisone 20 Mg Tab, 20 MG PO DAILY, #5 Prescribed by: MAGUE DOVE on 06/25/17 0741 Vit W-Ca,Fe,FA(<1 mg) 1 Each Tablet, 1 EACH PO DAILY, (Reported) Constitutional: no symptoms reported EENTM: no symptoms reported Respiratory: no symptoms reported Cardiovascular: no symptoms reported Gastrointestinal: no symptoms reported Genitourinary: no symptoms reported : No Musculoskeletal: see HPI Skin: no symptoms reported Psychiatric/Neurological: See HPI Past Pgukplw-Hsdpvv-Lfswte Hx Patient Social History Alcohol Use: Denies Use Recreational Drug Use: No Type Used: Cigarettes Former Smoker, Quit: May 17, 2012 Recent Foreign Travel: No Contact w/Someone Who Travel: No Recent Infectious Disease Expo: No Recent Hopitalizations: No Seasonal Allergies Seasonal Allergies: Yes Surgeries History of Surgeries: Yes (Left ankle) Surgeries: Orthopedic, Tonsillectomy Respiratory History of Respiratory Disorde: Yes Respiratory Disorders: Asthma Cardiovascular History of Cardiac Disorders: No Neurological History of Neurological Disord: No Reproductive System : No Hx Reproductive Disorders: Yes (history of preeclampsia) Genitourinary History of Genitourinary Disor: No Gastrointestinal History of Gastrointestinal Di: No Musculoskeletal History of Musculoskeletal Dis: Yes ("screw in left ankle") Musculoskeletal Disorders: Fractures Endocrine History of Endocrine Disorders: Yes (Gestational diabetes) HEENT History of HEENT Disorders: No Cancer History of Cancer: No Psychosocial History of Psychiatric Problem: Yes Behavioral Health Disorders: Depression Integumentary History of Skin or Integumenta: No Blood Transfusions History of Blood Disorders: No Adverse Reaction to a Blood Tr: No Family Medical History Family Medial History: Asthma (Mother) Diabetes mellitus (Sister and mother) Hypertension (Grandparents, great grandparents) Physical Exam Vital Signs Vital Sign - Last 12Hours 06/25/17 06/25/17 07:18 07:50 Temp 97.6 Pulse 80 Resp 16 B/P (MAP) 135/89 Pulse Ox 98 O2 Delivery Room Air Capillary Refill : Less Than 3 Seconds General Appearance: WD/WN, Mild Distress HEENT: PERRL/EOMI, Normal ENT Inspection Cardiovascular: Regular Rate, Rhythm, No Edema, No Murmur Respiratory: Lungs Clear, Normal Breath Sounds, No Accessory Muscle Use, No Respiratory Distress Back: No Vertebral Tenderness, Other (mild tenderness in the right lumbar paravertebral muscles. Moderate tenderness over the right SI joint) Extremity: Normal Inspection, Other (mild tenderness in the right gluteus muscles) Neurologic/Psychiatric: Alert, Oriented x3, No Motor/Sensory Deficits, Normal Mood/Affect, public information officer II-XII Norm as Tested Skin: Normal Color, Warm/Dry Progress/Results/Core Measures Results/Orders My Orders Orders - MAGUE RODRÍGUEZ MD Orphenadrine Injection (Norflex Injectio (06/25/17 07:30) Ketorolac Injection (Toradol Injection) (06/25/17 07:30) Hydrocodone/Apap 5/325 Tablet (Lortab 5 (06/25/17 07:30) Medications Given in ED Current Medications Medications Dose Ordered Sig/Neil Route Start Time Stop Time Status Last Admin Dose Admin Acetaminophen/ Hydrocodone Bitart 1 tab ONCE ONCE PO 06/25/17 07:30 06/25/17 07:31 DC 06/25/17 07:38 1 TAB Ketorolac Tromethamine 30 mg ONCE ONCE IM 06/25/17 07:30 06/25/17 07:31 DC 06/25/17 07:37 30 MG Orphenadrine Citrate 60 mg ONCE ONCE IM 06/25/17 07:30 06/25/17 07:31 DC 06/25/17 07:38 60 MG Vital Signs/I&O Vital Sign - Last 12Hours 06/25/17 06/25/17 06/25/17 06/25/17 07:18 07:37 07:38 07:38 Temp 97.6 97.6 97.6 97.6 Pulse 80 Resp 16 B/P (MAP) 135/89 O2 Delivery Room Air 06/25/17 07:50 Pulse 80 Resp 16 Pulse Ox 98 Blood Pressure Mean: 104 Progress Note : Progress Note Patient was treated with Toradol 30 mg IM, Norflex 60 mg IM, and a hydrocodone 5 mg. Departure Impression Impression: Primary Impression: Sacroiliac joint pain Additional Impressions: Sciatic leg pain Low back pain Qualified Codes: M54.41 - Lumbago with sciatica, right side Disposition: 01 HOME, SELF-CARE Condition: Improved Departure-Patient Inst. Decision time for Depature: 07:37 Referrals: CHRISTIAN MARIA DO (PCP/Family) Primary Care Physician Patient Instructions: Sciatica, Sciatica Exercises Add. Discharge Instructions: You may resume taking ibuprofen up to 600 mg every 6 hours as needed after 2 o' clock this afternoon. Add Tylenol (acetaminophen) up to 1000 mg every 6 hours as needed for pain not controlled by ibuprofen. Avoid excessive lifting or strenuous activity whenever possible until pain resolves. Follow-up with your primary care provider and her physical therapist as soon as possible. Gentle heat to your lower back may be helpful in reducing pain and muscle spasms. Avoid placing items such as a cell phone or wallet in the back pocket. You may continue breast-feeding while taking prednisone. All discharge instructions reviewed with patient and/or family. Voiced understanding. Scripts Prednisone (Prednisone) 20 Mg Tab 20 MG PO DAILY, #5 TAB Prov: MAGUE RODRÍGUEZ MD 06/25/17 MAGUE RODRÍGUEZ MD Jun 25, 2017 07:41
[2017-06-25 07:50] VITALS: BP 128/82
== END 2017-06-25 08:00 | disposition home or self-care (01) ==
LOC: EDUNIT# 07:05 → ER 07:06
DX: O99.89 Other specified diseases and conditions complicating pregnancy, childbirth and the puerperium (principal); M53.3 Sacrococcygeal disorders, not elsewhere classified; M54.41 Lumbago with sciatica, right side; O99.53 Diseases of the respiratory system complicating the puerperium; J45.909 Unspecified asthma, uncomplicated; O99.345 Other mental disorders complicating the puerperium; F32.9 Major depressive disorder, single episode, unspecified; Z90.89 Acquired absence of other organs; Z87.891 Personal history of nicotine dependence
CPT/HCPCS: 99284

== ENCOUNTER 2017-08-21 13:10 | Outpatient (RCR) | payer MEDICAID ==
[~2017-08-21 13:10] MED LIST changes: +ACHD5005 PO; -HYDR-3812 PO; +PRD20T PO
== END 2017-09-05 14:21 | disposition home or self-care (01) ==
PROVIDERS: ATTEND Obstetrics & Gynecology
DX: O90.89 Other complications of the puerperium, not elsewhere classified (principal); M25.551 Pain in right hip